=== PATIENT | female | born 1970 | race Caucasian/White ===

== ENCOUNTER 2018-07-19 21:08 | Inpatient (IN) | payer OTHER ==
[2018-07-19] MEDS: ONDANSETRON 4 MG INJ IV (22:17)
[2018-07-19] MEDS: morphine SULFATE/PF (2 MG/2 ML) SYG IV (22:17)
[2018-07-19] MEDS: HEPARIN 5,000 UNIT/1 ML VIAL SC (22:26)
[2018-07-19] MEDS ORDERED: ACETAMINOPHEN 325 MG TAB PO (22:30)
[2018-07-19] MEDS ORDERED: NITROGLYCERIN (SL) 0.4 MG TAB SL (22:30)
[2018-07-19] MEDS ORDERED: NACL 0.9% 3 ML SYG IV (22:30)
[2018-07-19] MEDS ORDERED: DOCUSATE SODIUM 100 MG CAP PO (22:30)
[2018-07-19] MEDS ORDERED: BISACODYL (EC) 5 MG TAB PO (22:30)
[2018-07-19 22:34] LABS: ADD MAN DIFF? NO
[2018-07-19 22:35] LABS: WHITE BLOOD COUNT 13.4 10^3/ul (4.8-10.8)
[2018-07-19 22:35] LABS: BASOPHILS % 0.2 % (0.0-2.0); EOSINOPHILS % 0.1 % (0.0-7.0); HEMATOCRIT 33.3 % (37.0-47.0); LYMPHOCYTES # 1.8 10^3/ul (0.8-2.9); LYMPHOCYTES % 13.7 % (15.0-51.0); MEAN CORPUSCULAR HEMOGLOBIN 34.3 pg (29.0-33.0); MEAN CORPUSCULAR VOLUME 103.7 fl (82.0-101.0); MEAN PLATELET VOLUME 9.3 fl (7.4-10.4); MONOCYTE # 0.3 10^3/ul (0.3-0.9); MONOCYTES % 2.5 % (0.0-11.0); NEUTROPHIL # 11.2 10^3/ul (1.6-7.5); NEUTROPHILS % 83.2 % (39.0-77.0); PLATELET COUNT 218 10^3/UL (140-415); RED BLOOD COUNT 3.21 10^6/ul (4.20-5.40)
[2018-07-19 23:00] LABS: ALANINE AMINOTRANSFERASE 40 IU/L (13-69); ALBUMIN 3.4 g/dl (3.3-4.9); ALBUMIN/GLOBULIN RATIO 1.17; ALKALINE PHOSPHATASE 151 IU/L (42-121); ANION GAP 6 (5-13); ASPARTATE AMINO TRANSFERASE 41 IU/L (15-46); BLOOD UREA NITROGEN 9 mg/dl (7-20); CALCIUM 9.3 mg/dl (8.4-10.2); CARBON DIOXIDE 26 mmol/L (21-31); CHLORIDE 105 mmol/L (97-110); CREATININE 0.52 mg/dl (0.44-1.00); Estimated GFR > 60 mL/min (>60); GLUCOSE 99 mg/dl (70-220); POTASSIUM 4.7 mmol/L (3.5-5.1); SODIUM 137 mmol/L (135-144); TOTAL PROTEIN 6.3 g/dl (6.1-8.1)
[2018-07-19 23:03] LABS: LACTIC ACID 2.1 mmol/L (0.5-2.0)
[2018-07-19] MEDS: GUAIFENESIN/DM 5ML CUP PO (23:38)
[2018-07-19] MEDS: KETOROLAC 15 MG INJ IV (23:39)
[2018-07-20] MEDS ORDERED: VANCOMYCIN IV PER PHARMACY XX
[2018-07-20] MEDS: PIPER-TAZO 3.375 GM IV (PMX) 100 ML IVPB ×4 (00:39→18:51)
[2018-07-20] MEDS: ALPRAZOLAM 1 MG TAB PO ×3 (00:44→17:13)
[2018-07-20 02:13] LABS: HIV 1&2 ANTIBODY NEGATIVE (NEGATIVE)
[2018-07-20] MEDS: LEVETIRACETAM 750 MG TAB PO ×3 (02:15→21:03)
[2018-07-20] MEDS: morphine SULFATE/PF (2 MG/2 ML) SYG IV ×5 (02:15→21:11)
[2018-07-20] MEDS: VANCOMYCIN 1.25 GM in SOD CHLORIDE 0.9% 250 ML IVPB (03:09)
[2018-07-20] MEDS: LAMOTRIGINE 100 MG TAB PO ×2 (03:10→21:02)
[2018-07-20] MEDS: GUAIFENESIN/DM 5ML CUP PO ×3 (05:45→21:10)
[2018-07-20] MEDS: KETOROLAC 15 MG INJ IV ×3 (05:45→17:13)
[2018-07-20] MEDS: HEPARIN 5,000 UNIT/1 ML VIAL SC ×3 (05:57→21:22)
[2018-07-20 06:15] LABS: ADD MAN DIFF? NO
[2018-07-20 06:19] LABS: BASOPHILS % 0.3 % (0.0-2.0); EOSINOPHILS # 0.1 10^3/ul (0.0-0.5); EOSINOPHILS % 0.8 % (0.0-7.0); HEMATOCRIT 30.9 % (37.0-47.0); HEMOGLOBIN 10.6 g/dl (12.0-16.0); LYMPHOCYTES # 2.4 10^3/ul (0.8-2.9); LYMPHOCYTES % 18.5 % (15.0-51.0); MEAN CORPUSCULAR HGB CONC 34.3 g/dl (32.0-37.0); MEAN PLATELET VOLUME 9.4 fl (7.4-10.4); MONOCYTE # 0.3 10^3/ul (0.3-0.9); MONOCYTES % 2.5 % (0.0-11.0); NEUTROPHIL # 10.1 10^3/ul (1.6-7.5); NEUTROPHILS % 77.4 % (39.0-77.0); PLATELET COUNT 234 10^3/UL (140-415); RED BLOOD COUNT 3.12 10^6/ul (4.20-5.40); RED CELL DISTRIBUTION WIDTH 11.9 % (11.5-14.5)
[2018-07-20 06:19] LABS: WHITE BLOOD COUNT 13.1 10^3/ul (4.8-10.8)
[2018-07-20] MEDS: LEVOTHYROXINE 100 MCG TAB PO (06:22)
[2018-07-20 06:43] LABS: ALANINE AMINOTRANSFERASE 33 IU/L (13-69); ALBUMIN 3.2 g/dl (3.3-4.9); ALBUMIN/GLOBULIN RATIO 1.06; ALKALINE PHOSPHATASE 134 IU/L (42-121); ANION GAP 8 (5-13); ASPARTATE AMINO TRANSFERASE 30 IU/L (15-46); BILIRUBIN,INDIRECT 0.1 mg/dl (0-1.1); BILIRUBIN,TOTAL 0.1 mg/dl (0.2-1.3); BLOOD UREA NITROGEN 7 mg/dl (7-20); CALCIUM 9.2 mg/dl (8.4-10.2); CARBON DIOXIDE 27 mmol/L (21-31); CHLORIDE 104 mmol/L (97-110); CHOL/HDL RATIO 3.5 RATIO; CHOLESTEROL 126 mg/dl (100-200); CREATININE 0.54 mg/dl (0.44-1.00); Estimated GFR > 60 mL/min (>60); GLUCOSE 115 mg/dl (70-220); HDL CHOLESTEROL 36 mg/dl (37-92); LDL CHOLESTEROL,CALCULATED 70 mg/dl; MAGNESIUM 1.7 mg/dl (1.7-2.5); POTASSIUM 4.2 mmol/L (3.5-5.1); SODIUM 139 mmol/L (135-144); TOTAL PROTEIN 6.2 g/dl (6.1-8.1); TRIGLYCERIDES 99 mg/dl (0-149)
[2018-07-20 06:44] LABS: LACTIC ACID 0.9 mmol/L (0.5-2.0)
[2018-07-20 07:00] LABS: HEMOGLOBIN A1C 5.4 % (0-5.9)
[2018-07-20 07:07] LABS: THYROID STIMULATING HORMONE 0.397 MIU/L (0.465-4.680)
[2018-07-20 08:18] LABS: AADO2 Arterial 110.1 mmHg (7.0-24.0); Allen Test ACCEPTAB; Arterial Base Excess -0.8 mmol/L (-3.0-3); Arterial Blood Gas Oxygen Sat 94.3 mmHG (95.0-98.0); Arterial Fraction of Oxyhgb 93.4 % (93.0-99.0); Arterial HCO3 24.1 mmol/L (22.0-26.0); Arterial MetHb 0 % (0.0-1.5); Arterial pCO2 40.6 mmhg (35-45); MODE NASAL CANNULA; Site Left Radial
[2018-07-20] MEDS: FLUOXETINE 20 MG CAP PO (08:29)
[2018-07-20] MEDS: predniSONE 20 MG TAB PO (08:30)
[2018-07-20 11:01] LABS: ADD UMIC YES; UR ASCORBIC ACID NEGATIVE (NEGATIVE); UR BILIRUBIN (Dip) NEGATIVE (NEGATIVE); UR BLOOD (Dip) 2+ mg/dL (NEGATIVE); UR CLARITY CLEAR (CLEAR); UR COLOR YELLOW (YELLOW); UR GLUCOSE (Dip) NEGATIVE (NEGATIVE); UR KETONES (Dip) TRACE mg/dL (NEGATIVE); UR LEUKOCYTE ESTERASE (Dip) NEGATIVE Leu/ul (NEGATIVE); UR NITRITE (Dip) NEGATIVE (NEGATIVE); UR RBC 3 /HPF (0-5); UR SPECIFIC GRAVITY (Dip) 1.009 (1.003-1.030); UR TOTAL PROTEIN (Dip) NEGATIVE (NEGATIVE); UR UROBILINOGEN (Dip) 1+ mg/dL (NEGATIVE); UR WBC 1 /HPF (0-5)
[2018-07-20] MEDS: METHYLPREDNISOLONE 40 MG INJ IV ×2 (11:42→17:12)
[2018-07-20] MEDS: VANCOMYCIN 1 GM 250 ML IVPB (15:23)
[2018-07-20] MEDS: ATORVASTATIN 20 MG TAB PO (21:02)
[2018-07-20] MEDS: ONDANSETRON 4 MG INJ IV (21:10)
[2018-07-21] MEDS: METHYLPREDNISOLONE 40 MG INJ IV ×5 (00:35→23:44)
[2018-07-21] MEDS: PIPER-TAZO 3.375 GM IV (PMX) 100 ML IVPB ×5 (00:35→23:37)
[2018-07-21] MEDS: GUAIFENESIN/DM 5ML CUP PO ×5 (01:18→20:21)
[2018-07-21] MEDS: ALPRAZOLAM 1 MG TAB PO ×4 (01:18→21:34)
[2018-07-21] MEDS: morphine SULFATE/PF (2 MG/2 ML) SYG IV ×6 (01:19→23:10)
[2018-07-21] MEDS: VANCOMYCIN 1 GM 250 ML IVPB ×3 (02:10→21:25)
[2018-07-21] MEDS: LEVOTHYROXINE 100 MCG TAB PO (05:25)
[2018-07-21] MEDS: HEPARIN 5,000 UNIT/1 ML VIAL SC ×3 (06:00→21:33)
[2018-07-21 07:46] LABS: ADD MAN DIFF? NO
[2018-07-21] MEDS: LAMOTRIGINE 100 MG TAB PO ×2 (08:10→20:19)
[2018-07-21] MEDS: FLUOXETINE 20 MG CAP PO (08:11)
[2018-07-21] MEDS: LEVETIRACETAM 750 MG TAB PO ×2 (08:11→20:19)
[2018-07-21 08:12] LABS: ANION GAP 4 (5-13); BLOOD UREA NITROGEN 11 mg/dl (7-20); CALCIUM 9.6 mg/dl (8.4-10.2); CARBON DIOXIDE 27 mmol/L (21-31); CHLORIDE 108 mmol/L (97-110); CREATININE 0.58 mg/dl (0.44-1.00); Estimated GFR > 60 mL/min (>60); GLUCOSE 128 mg/dl (70-220); POTASSIUM 4.8 mmol/L (3.5-5.1); SODIUM 139 mmol/L (135-144)
[2018-07-21 08:22] LABS: WHITE BLOOD COUNT 13.6 10^3/ul (4.8-10.8)
[2018-07-21 08:22] LABS: BASOPHILS % 0.1 % (0.0-2.0); EOSINOPHILS % 0.1 % (0.0-7.0); HEMATOCRIT 34.1 % (37.0-47.0); HEMOGLOBIN 11.7 g/dl (12.0-16.0); LYMPHOCYTES # 1.3 10^3/ul (0.8-2.9); LYMPHOCYTES % 9.4 % (15.0-51.0); MEAN CORPUSCULAR HGB CONC 34.3 g/dl (32.0-37.0); MEAN CORPUSCULAR VOLUME 99.1 fl (82.0-101.0); MEAN PLATELET VOLUME 9.7 fl (7.4-10.4); MONOCYTE # 0.3 10^3/ul (0.3-0.9); MONOCYTES % 2.2 % (0.0-11.0); NEUTROPHIL # 11.9 10^3/ul (1.6-7.5); NEUTROPHILS % 87.5 % (39.0-77.0); PLATELET COUNT 304 10^3/UL (140-415); RED BLOOD COUNT 3.44 10^6/ul (4.20-5.40); RED CELL DISTRIBUTION WIDTH 11.9 % (11.5-14.5)
[2018-07-21 09:22] LABS: FOLATE > 20.0 ng/ml (2.8-20.0)
[2018-07-21 14:52] LABS: ERYTHROCYTE SEDIMENTATION RATE 80 mm/Hr (0-20)
[2018-07-21 15:19] LABS: VANCOMYCIN,TROUGH < 5.0 ug/ml (10.0-20.0)
[2018-07-21] MEDS ORDERED: VANCOMYCIN 1 GM 250 ML IVPB (15:30)
[2018-07-21] MEDS: ALBUTEROL/IPRATROPIUM (NEB) 3 ML AMP HHN ×2 (17:18→20:31)
[2018-07-21] MEDS: ATORVASTATIN 20 MG TAB PO (20:19)
[2018-07-22] MEDS: morphine SULFATE/PF (2 MG/2 ML) SYG IV ×3 (02:47→20:50)
[2018-07-22] MEDS: METHYLPREDNISOLONE 40 MG INJ IV ×4 (05:22→23:26)
[2018-07-22] MEDS: LEVOTHYROXINE 100 MCG TAB PO (05:23)
[2018-07-22] MEDS: PIPER-TAZO 3.375 GM IV (PMX) 100 ML IVPB ×4 (05:23→23:26)
[2018-07-22] MEDS: HEPARIN 5,000 UNIT/1 ML VIAL SC ×3 (05:29→21:07)
[2018-07-22] MEDS: ALPRAZOLAM 1 MG TAB PO (05:31)
[2018-07-22] MEDS: GUAIFENESIN/DM 5ML CUP PO ×2 (05:31→20:50)
[2018-07-22] MEDS: VANCOMYCIN 1 GM 250 ML IVPB ×3 (06:15→20:50)
[2018-07-22] MEDS: KETOROLAC 15 MG INJ IV (06:15)
[2018-07-22 07:00] LABS: ADD MAN DIFF? NO
[2018-07-22 07:04] LABS: WHITE BLOOD COUNT 8.7 10^3/ul (4.8-10.8)
[2018-07-22 07:04] LABS: BASOPHILS % 0.1 % (0.0-2.0); EOSINOPHILS % 0.5 % (0.0-7.0); HEMATOCRIT 31.4 % (37.0-47.0); HEMOGLOBIN 10.5 g/dl (12.0-16.0); LYMPHOCYTES # 2.8 10^3/ul (0.8-2.9); LYMPHOCYTES % 32.5 % (15.0-51.0); MEAN CORPUSCULAR HGB CONC 33.4 g/dl (32.0-37.0); MEAN CORPUSCULAR VOLUME 101.6 fl (82.0-101.0); MEAN PLATELET VOLUME 9.6 fl (7.4-10.4); MONOCYTE # 0.4 10^3/ul (0.3-0.9); NEUTROPHIL # 5.3 10^3/ul (1.6-7.5); NEUTROPHILS % 61.6 % (39.0-77.0); PLATELET COUNT 298 10^3/UL (140-415); RED BLOOD COUNT 3.09 10^6/ul (4.20-5.40); RED CELL DISTRIBUTION WIDTH 11.9 % (11.5-14.5)
[2018-07-22 08:19] LABS: AADO2 Arterial 29.1 mmHg (7.0-24.0); Allen Test ACCEPTAB; Arterial Blood Gas Oxygen Sat 94.2 mmHG (95.0-98.0); Arterial COHb 0.3 % (0.0-3.0); Arterial Fraction of Oxyhgb 93.8 % (93.0-99.0); Arterial HCO3 25.2 mmol/L (22.0-26.0); Arterial MetHb 0.1 % (0.0-1.5); Arterial pCO2 38.5 mmhg (35-45); MODE ROOM AIR; Site Right Radial
[2018-07-22] MEDS: LAMOTRIGINE 100 MG TAB PO ×2 (08:41→20:50)
[2018-07-22] MEDS: FLUOXETINE 20 MG CAP PO (08:41)
[2018-07-22] MEDS: LEVETIRACETAM 750 MG TAB PO ×2 (08:41→20:50)
[2018-07-22] MEDS: HYDROCODONE/APAP (5/325) TAB PO (08:47)
[2018-07-22] MEDS: ALBUTEROL/IPRATROPIUM (NEB) 3 ML AMP HHN ×4 (08:51→21:00)
[2018-07-22 12:16] LABS: ANA SCREEN NEGATIVE (NEGATIVE)
[2018-07-22] MEDS ORDERED: LOSARTAN 25 MG TAB PO (12:30)
[2018-07-22 13:47] LABS: ANCA SCREEN NEGATIVE (NEGATIVE); MYELOPEROXIDASE ANTIBODY <1.0 AI; PROTEINASE-3 ANTIBODY <1.0 AI
[2018-07-22 16:51] LABS: MYCOPLASMA PNEUMONIAE AB (IGG) < or = 0.90
[2018-07-22] MEDS: ALPRAZOLAM 0.25 MG TAB PO (17:48)
[2018-07-22] MEDS: ATORVASTATIN 20 MG TAB PO (20:50)
[2018-07-22] MEDS: DOCUSATE SODIUM 100 MG CAP PO (20:51)
[2018-07-23] MEDS: morphine LIQ (10 MG/5 ML) CUP PO ×2 (03:40→09:02)
[2018-07-23] MEDS: GUAIFENESIN/DM 5ML CUP PO ×2 (03:40→08:52)
[2018-07-23] MEDS: ALPRAZOLAM 0.25 MG TAB PO (03:42)
[2018-07-23] MEDS: METHYLPREDNISOLONE 40 MG INJ IV (05:13)
[2018-07-23] MEDS: PIPER-TAZO 3.375 GM IV (PMX) 100 ML IVPB (05:13)
[2018-07-23] MEDS: LEVOTHYROXINE 100 MCG TAB PO (05:13)
[2018-07-23] MEDS: HEPARIN 5,000 UNIT/1 ML VIAL SC (05:20)
[2018-07-23] MEDS: ONDANSETRON 4 MG INJ IV (05:21)
[2018-07-23] MEDS: VANCOMYCIN 1 GM 250 ML IVPB (06:19)
[2018-07-23 06:36] LABS: ADD MAN DIFF? NO
[2018-07-23 06:53] LABS: BASOPHILS % 0.1 % (0.0-2.0); EOSINOPHILS % 0.4 % (0.0-7.0); HEMATOCRIT 29.1 % (37.0-47.0); LYMPHOCYTES # 2.5 10^3/ul (0.8-2.9); LYMPHOCYTES % 31.7 % (15.0-51.0); MEAN CORPUSCULAR HEMOGLOBIN 34.4 pg (29.0-33.0); MEAN CORPUSCULAR HGB CONC 34.4 g/dl (32.0-37.0); MEAN PLATELET VOLUME 9.4 fl (7.4-10.4); MONOCYTE # 0.6 10^3/ul (0.3-0.9); MONOCYTES % 7.2 % (0.0-11.0); NEUTROPHIL # 4.8 10^3/ul (1.6-7.5); PLATELET COUNT 284 10^3/UL (140-415); RED BLOOD COUNT 2.91 10^6/ul (4.20-5.40)
[2018-07-23 07:33] LABS: ANION GAP 10 (5-13); BLOOD UREA NITROGEN 8 mg/dl (7-20); CALCIUM 9.5 mg/dl (8.4-10.2); CARBON DIOXIDE 26 mmol/L (21-31); CHLORIDE 109 mmol/L (97-110); CREATININE 0.57 mg/dl (0.44-1.00); Estimated GFR > 60 mL/min (>60); GLUCOSE 105 mg/dl (70-220); MAGNESIUM 2.1 mg/dl (1.7-2.5); POTASSIUM 3.7 mmol/L (3.5-5.1); SODIUM 145 mmol/L (135-144)
[2018-07-23 07:44] LABS: FREE T4 (FREE THYROXINE) 1.27 ng/dl (0.64-1.79)
[2018-07-23 07:45] LABS: FREE T3 2.98 pg/ml (2.77-5.27)
[2018-07-23] MEDS: ALBUTEROL/IPRATROPIUM (NEB) 3 ML AMP HHN ×2 (08:46→12:41)
[2018-07-23] MEDS: LAMOTRIGINE 100 MG TAB PO (08:53)
[2018-07-23] MEDS: LEVETIRACETAM 750 MG TAB PO (08:53)
[2018-07-23] MEDS: FLUOXETINE 20 MG CAP PO (08:53)
[2018-07-23] MEDS: DOCUSATE SODIUM 100 MG CAP PO (10:30)
== END 2018-07-23 14:10 | disposition home or self-care (01) | DRG 190 ==
LOC: TEL 21:08
DX: J44.1 Chronic obstructive pulmonary disease with (acute) exacerbation (principal); J96.01 Acute respiratory failure with hypoxia; G40.909 Epilepsy, unspecified, not intractable, without status epilepticus; E78.5 Hyperlipidemia, unspecified; F39 Unspecified mood [affective] disorder; E03.9 Hypothyroidism, unspecified; Z72.0 Tobacco use
CPT/HCPCS: 36600; 71045; 71250; 80048; 80053; 80061; 80202; 81001; 82607; 82746; 82803; 83036; 83605; 83735; 84439; 84443; 84481; 84703; 85025; 85651; 86021; 86038; 86403; 86703; 86738; 87040; 87449; 94640; 94664